=== PATIENT | male | born 1945 | race Caucasian/White ===

== ENCOUNTER → 2016-11-08 | Outpatient (CLI) | payer MEDICARE, OTHER | END | disposition home or self-care (01) | LOC: GMAB 10:31 | PROVIDERS: ATTEND Family Medicine | DX: Z12.5 Encounter for screening for malignant neoplasm of prostate (principal); I10 Essential (primary) hypertension | CPT/HCPCS: 84443; G0103 ==

== ENCOUNTER → 2017-03-02 | Outpatient (CLI) | payer MEDICARE, OTHER | END | disposition home or self-care (01) | LOC: CT 07:53 | PROVIDERS: ATTEND Family Medicine | DX: I63.9 Cerebral infarction, unspecified (principal) ==

== ENCOUNTER → 2017-11-13 | Outpatient (CLI) | payer MEDICARE, OTHER | END | disposition home or self-care (01) | LOC: GMAB 11:01 | PROVIDERS: ATTEND Family Medicine | DX: Z12.5 Encounter for screening for malignant neoplasm of prostate (principal); I10 Essential (primary) hypertension; D64.9 Anemia, unspecified; D51.9 Vitamin B12 deficiency anemia, unspecified; E53.9 Vitamin B deficiency, unspecified; D50.9 Iron deficiency anemia, unspecified | CPT/HCPCS: 82607; 82728; 82746; 83540; 83550; 84443; G0103 ==

== ENCOUNTER → 2018-02-22 | Outpatient (CLI) | payer MEDICARE, OTHER | LOC: GMAJS 14:52 | PROVIDERS: ATTEND Physician Assistant | DX: R29.898 Other symptoms and signs involving the musculoskeletal system (principal); R53.83 Other fatigue; R53.81 Other malaise; D64.9 Anemia, unspecified ==

== ENCOUNTER → 2018-03-05 | Outpatient (CLI) | payer MEDICARE, OTHER | LOC: GMAE 17:27 | PROVIDERS: ATTEND Family Medicine | DX: D51.9 Vitamin B12 deficiency anemia, unspecified (principal); D50.9 Iron deficiency anemia, unspecified; N18.3 Chronic kidney disease, stage 3 (moderate); I10 Essential (primary) hypertension ==

== ENCOUNTER → 2018-08-23 | Outpatient (CLI) | payer MEDICARE, OTHER | LOC: GMAE 14:08 | PROVIDERS: ATTEND Family Medicine | DX: D50.9 Iron deficiency anemia, unspecified (principal); D51.9 Vitamin B12 deficiency anemia, unspecified; D64.9 Anemia, unspecified ==

== ENCOUNTER → 2018-11-26 | Outpatient (CLI) | payer MEDICARE, OTHER | LOC: GMAE 10:31 | PROVIDERS: ATTEND Family Medicine | DX: D51.9 Vitamin B12 deficiency anemia, unspecified (principal); D50.9 Iron deficiency anemia, unspecified; I10 Essential (primary) hypertension ==

== ENCOUNTER → 2018-12-20 | Outpatient (CLI) | payer MEDICARE, OTHER | LOC: GMAE 11:44 | PROVIDERS: ATTEND Family Medicine | DX: D53.1 Other megaloblastic anemias, not elsewhere classified (principal) ==

== ENCOUNTER 2019-04-29 01:30 | Emergency (ER) | payer MEDICARE, OTHER ==
[2019-04-29] MEDS ORDERED: ALUM & MAG HYDROX-SIMETHICONE 30 ML, LIDOCAINE VISCOUS 2% 15 ML PO ONE ×2 (02:00)
[2019-04-29] MEDS ORDERED: ALUM & MAG HYDROX-SIMETHICONE 30 ML UD ONE (02:17)
[2019-04-29] MEDS ORDERED: LIDOCAINE HCL 2% (MOUTH-THROAT) 15 ML UD ONE (02:17)
--- NOTE | 2019-04-29 02:19 | ED.PDOC ---
History of Present Illness - General Chief Complaint: Chest Pain/DC Stated Complaint: epigastic burning Time Seen by Provider: 04/29/19 01:49 - History of Present Illness Initial Comments: Pt is a 73 yo male with PMH of pAfib and gallstones who presents to ED with for onset of burning, tight, epigastric pain that began 3 hours HOME CARE LIAISON. States he ate fried liver for dinner last night and developed burning epigastric pain sy ght. States it felt like heartburn and has taken Prilosec and drank a Coke with some improvement. Rates pain as 3/10 at this time. Denies CP, SOB, palpitations, nausea, diaphoresis, vomiting or diarrhea. Allergies/Adverse Reactions: Allergies Hydrocodone Allergy (Verified 11/30/14 07:33) Home Medications: Ambulatory Orders Diltiazem HCl Coated Beads [Diltiazem Cd] 240 mg PO DAILY 04/01/14 Lisinopril & Hydrochlorothiazi [Lisinopril/Hctz 20-12.5 mg] 20 mg PO BID 04/01/14 Pantoprazole Tablet [Protonix] 40 mg PO ACBK #30 tab 03/27/15 Apixaban [Eliquis] 2.5 mg PO BID 09/18/15 Citalopram Hydrobromide [CeleXA] 20 mg PO DAILY 09/18/15 Dutasteride-Tamsulosin HCl [Dutasteride/Tamsulosin Hy 0.5-0.4 mg] 1 cap PO DAILY 09/18/15 Metoprolol Tartrate [Lopressor] 25 mg PO BID 09/18/15 Trazodone HCl [Trazodone Hydrochloride] 50 mg PO BEDTIME 04/29/19 Review of Systems - Review of Systems Constitutional: Denies: chills, fever, malaise EENTM: Denies: ear pain, nose congestion, throat pain, throat swelling Respiratory: Denies: cough, short of breath, wheezing Cardiology: Denies: chest pain, edema, palpitations, syncope Gastrointestinal/Abdominal: States: abdominal pain. Denies: constipation, diarrhea, nausea, vomiting Musculoskeletal: Denies: back pain, joint swelling, muscle pain Skin: Denies: rash Neurological: Denies: headache, paresthesia, weakness All other Systems: Reviewed and Negative Past Medical History (General) - Patient Medical History Hx Seizures: No Hx Stroke: Yes Hx Dementia: No Hx Asthma: No Hx of COPD: No Hx Cardiac Disorders: Yes - a fib Hx Congestive Heart Failure: No Hx Pacemaker: No Hx Hypertension: Yes Hx Thyroid Disease: No Hx Diabetes: No Hx Gastroesophageal Reflux: Yes Hx Renal Disease: No Hx Cancer: No Hx of HIV: No Hx Hepatitis C: No Hx MRSA: No Surgical History: no surgical history - Vaccination History Hx Tetanus, Diphtheria Vaccination: Yes Hx Influenza Vaccination: No Hx Pneumococcal Vaccination: Yes - Social History Hx Tobacco Use: No Hx Alcohol Use: No Hx Substance Use: No Hx Substance Use Treatment: No Hx Depression: No - Female History Patient : No Family Medical History - Family History Mother Family History: No Known Hx Family Congestive Heart Failure: Yes Hx Family Hypertension: Yes Physical Exam - Physical Exam General Appearance: Alert, Comfortable, No apparent distress, Well Hydrated Neck: non-tender, full range of motion, supple Respiratory: chest non-tender, lungs clear, normal breath sounds, no respiratory distress Cardiovascular/Chest: normal peripheral pulses, regular rate, rhythm, no edema, no murmur Gastrointestinal/Abdominal: soft, other - Mild TTP epigastric area. No guarding. Negative Davison's sign Back Exam: normal inspection, no CVA tenderness, no vertebral tenderness Extremity: normal range of motion, non-tender, normal inspection, no pedal edema Neurologic: no motor/sensory deficits, alert, normal mood/affect Skin Exam: normal color, warm/dry Progress - Progress Progress: 04/29/19 02:22 Wesley Becerril #[id number] 04/29/19 03:53 Pain has resolved post GI cocktail and Pepcid and patient resting comfortably. Initial Troponin 0.00. Labs and imaging reassuring. Pt agrees with repeat troponin in ED. 04/29/19 04:42 Pt presents with burning epigastric pain that resolved with GI meds. Observed in ED with 2 troponin that are negative. No sign of cardiac ischemia at this time. Feels comfortable going home and will continue PPI daily and f/u with PCP for recheck in 1-2 days. SRP given. 04/29/19 04:46 Please see EMR for labs and imaging. Results not crossing to note. Troponin negative x 2. - EKG/XRAY/CT Comments: Sinus rhythm, rate 66, occasional PAC, nonspecific ST abnormality Departure - Departure Clinical Impression: Atypical chest pain Acute gastritis without bleeding Qualifiers: Gastritis type: unspecified gastritis Qualified Code(s): K29.00 - Acute gastritis without bleeding Time of Disposition: 04:44 Disposition: Discharge to Home or Self Care Condition: Good Departure Forms: ED Discharge - Pt. Copy, Patient Portal Self Enrollment Instructions: DI for Chest Pain, Gastritis (DC) Referrals: SIMA ERICKSON MD [Primary Care Provider] - 1-2 Days Home Medications: Ambulatory Orders Diltiazem HCl Coated Beads [Diltiazem Cd] 240 mg PO DAILY 04/01/14 Lisinopril & Hydrochlorothiazi [Lisinopril/Hctz 20-12.5 mg] 20 mg PO BID 04/01/14 Pantoprazole Tablet [Protonix] 40 mg PO ACBK #30 tab 03/27/15 Apixaban [Eliquis] 2.5 mg PO BID 09/18/15 Citalopram Hydrobromide [CeleXA] 20 mg PO DAILY 09/18/15 Dutasteride-Tamsulosin HCl [Dutasteride/Tamsulosin Hy 0.5-0.4 mg] 1 cap PO DAILY 09/18/15 Metoprolol Tartrate [Lopressor] 25 mg PO BID 09/18/15 Trazodone HCl [Trazodone Hydrochloride] 50 mg PO BEDTIME 04/29/19 Comments: Follow up with PCP in 1-2 days. Continue Protonix daily and follow up with GI if not improving.
[2019-04-29] MEDS ORDERED: FAMOTIDINE IV PREMIX 20 MG in PREMIX BAG 1 BAG IVPB ONE (02:29)
[2019-04-29] MEDS ORDERED: FAMOTIDINE IV PREMIX 50 ML IVPB ONE (02:34)
--- NOTE | 2019-04-29 02:53 | RAD ---
CLINICAL HISTORY: chest pain COMPARISON: None. TECHNIQUE: XR CHEST 1 VIEW 04/29/2019 1:59 AM CDT FINDINGS: Cardiac silhouette is normal in size. Lungs are clear without consolidation, atelectasis, mass or edema. There is no pleural effusion. There is no pneumothorax. There are no acute osseous findings. IMPRESSION: Clear lungs. Electronically signed by: Grayson Gloria MD 04/29/2019 2:52 AM CDT
[2019-04-29 04:56] VITALS: BP 160/89; TEMP 97.3; O2SAT 97
== END 2019-04-29 04:55 | disposition home or self-care (01) ==
LOC: ER 01:30
DX: R07.89 Other chest pain (principal); K29.00 Acute gastritis without bleeding; I10 Essential (primary) hypertension; I48.91 Unspecified atrial fibrillation; Z86.73 Personal history of transient ischemic attack (TIA), and cerebral infarction without residual deficits; Z79.899 Other long term (current) drug therapy; Z88.5 Allergy status to narcotic agent
CPT/HCPCS: 71045; 80053; 83690; 83880; 84484; 85025; 85610; 85730; 93005; J3490

== ENCOUNTER → 2019-08-21 | Outpatient (CLI) | payer MEDICARE, OTHER | LOC: LAB.O 13:40 | PROVIDERS: ATTEND Urology | DX: R97.20 Elevated prostate specific antigen [PSA] (principal) ==

== ENCOUNTER → 2020-05-04 | Outpatient (CLI) | payer MEDICARE, OTHER | LOC: GMAE 14:28 | PROVIDERS: ATTEND Family Medicine | DX: E53.8 Deficiency of other specified B group vitamins (principal); Z12.5 Encounter for screening for malignant neoplasm of prostate; I10 Essential (primary) hypertension; Z79.899 Other long term (current) drug therapy | CPT/HCPCS: 82607; 84443; G0103 ==

== ENCOUNTER → 2020-08-24 | Outpatient (CLI) | payer MEDICARE, OTHER | LOC: GMAE 14:54 | PROVIDERS: ATTEND Family Medicine | DX: D50.9 Iron deficiency anemia, unspecified (principal); D56.9 Thalassemia, unspecified; D72.819 Decreased white blood cell count, unspecified ==